=== PATIENT | female | born 1990 | race Caucasian/White ===

== ENCOUNTER 2020-03-09 19:07 | Emergency (ER) | payer MEDICAID ==
--- NOTE | 2020-03-09 19:55 | EDM.PDOC ---
ED HPI GENERAL MEDICAL PROBLEM - General Chief Complaint: Lower Extremity Injury/Pain Stated Complaint: POSSIBLE BLOOD CLOT IN RIGHT LEG Time Seen by Provider: 03/09/20 19:16 Source of Information: Reports: Patient History Limitations: Reports: No Limitations - History of Present Illness INITIAL COMMENTS - FREE TEXT/NARRATIVE: Patient is a 30 year old female who presents to the emergency department after being sent here from the [facility] with concerns of a possible blood clot in her RLE. Patient states that she has been having pain and intermittent swelling to the RLE for the last 5 days. She c/o pain to the popliteal fossa which intermittently radiates down her calf. She states that about 5 days ago she was sitting on the floor and straightened her knee. She felt a pop and has been having pain to the lateral aspect of the knee since that time. She has been seen at the [facility] and a chiropractor how stated that she likely damaged one the ligaments; however, the knee is stable. There is concern of blood clot d/t her having shooting pains down the calf. She denies a hx of blood clots and is on on oral control. She denies the need for pain medications at this time. Treatments SOFTWARE SOLUTIONS ARCHITECT: Reports: Other (see below) Other Treatments SOFTWARE SOLUTIONS ARCHITECT: ELEVATION Right Posterior Knee Pain Score (Numeric/FACES): 8 - Related Data Allergies Allergy/AdvReac Type Severity Reaction Status Date / Time No Known Allergies Allergy Verified 03/09/20 19:25 Home Meds: Home Meds . [No Known Home Meds] 03/09/20 [History] Past Medical History Respiratory History: Reports: Bronchitis, Recurrent Social & Family History - Tobacco Use Smoking Status *Q: Never Smoker - Caffeine Use Caffeine Use: Reports: Tea - Recreational Drug Use Recreational Drug Use: No Review of Systems - Review of Systems Review Of Systems: See Below Constitutional: Reports: No Symptoms Respiratory: Reports: No Symptoms. Denies: Shortness of Breath, Pleuritic Chest Pain Cardiovascular: Reports: No Symptoms. Denies: Chest Pain Musculoskeletal: Reports: Other (Rt knee pain radiating down the calf.) ED EXAM, GENERAL - Physical Exam Exam: See Below Exam Limited By: No Limitations General Appearance: Alert, WD/WN, No Apparent Distress Respiratory/Chest: No Respiratory Distress, Lungs Clear, Normal Breath Sounds, No Accessory Muscle Use, Chest Non-Tender Cardiovascular: Normal Peripheral Pulses, Regular Rate, Rhythm, No Edema, No Gallop, No JVD, No Murmur, No Rub Extremities: Other (tenderness to palpation of the right popliteal fossa and rt calf. No redness or swelling present at time of exam.) Neurological: Alert, Oriented, CN II-XII Intact, Normal Cognition, Normal Gait, Normal Reflexes, No Motor/Sensory Deficits Psychiatric: Normal Affect, Normal Mood Course - Vital Signs Last Recorded V/S: Last Vital Signs Temp 98.2 F 03/09/20 19:27 Pulse 102 H 03/09/20 19:27 Resp 20 03/09/20 19:27 BP 116/86 03/09/20 19:27 Pulse Ox 96 03/09/20 19:27 - Orders/Labs/Meds Orders: Active Orders 24 hr Category Date Time Status VL Duplex Lwr Ext Veins Ltd Rt [US] Stat Exams 03/09/20 19:27 Taken - Re-Assessments/Exams Free Text/Narrative Re-Assessment/Exam: 03/09/20 21:18 venous duplex u/s of the RLE was negative for DVT. Leon wrap was offered, but pt declined.. She presented with crutches. I will refer the patient to Dr. Anthony for her knee pain. Departure - Departure Time of Disposition: 21:19 Disposition: Home, Self-Care 01 Condition: Good Clinical Impression: Knee pain, right Qualifiers: Chronicity: acute Qualified Code(s): M25.561 - Pain in right knee - Discharge Information Instructions: Acute Knee Pain, Adult Referrals: Prince Anthony MD [Physician] - Forms: ED Department Discharge Additional Instructions: You were seen in the emergency department for a 5 day history of right knee pain with radiation of pain down your calf. An u/s was completed of the right leg and showed no blood clot. You may continue to use crutches and compression bandages as needed for comfort and use over the counter tylenol and ibuprofen as needed for pain. Recommend that you call to schedule an appointment with orthopedist, Dr. Anthony. The number to schedule with him is listed below. Return to the ER as needed. Sepsis Event Note (ED) - Evaluation Sepsis Screening Result: No Definite Risk - Focused Exam Vital Signs: Vital Signs Temp Pulse Resp BP Pulse Ox 08/31/20 19:27 98.2 F 102 H 20 116/86 96 - My Orders Last 24 Hours: My Active Orders 03/09/20 19:27 VL Duplex Lwr Ext Veins Ltd Rt [US] Stat - Assessment/Plan Last 24 Hours: My Active Orders 03/09/20 19:27 VL Duplex Lwr Ext Veins Ltd Rt [US] Stat
--- NOTE | 2020-03-11 08:46 | US ---
Right lower extremity deep venous ultrasound: Duplex and color Doppler evaluation was obtained of the right common femoral, proximal greater saphenous, superficial femoral, popliteal, posterior tibial and peroneal veins. Left common femoral vein was also evaluated. Comparison: No prior venous imaging is available. Findings: Normal phasic flow, augmentation and compression is seen. Impression: 1. No evidence of deep venous thrombosis within the right lower extremity or within the left common femoral vein. Diagnostic code #1 This report was dictated in MDT I agree with preliminary report from fahad, finalized on 03/09/20, 10 0 9 PM Central Daylight Time
== END 2020-03-09 21:32 | disposition home or self-care (01) ==
LOC: JD.ED 19:07
DX: M25.561 Pain in right knee (principal)
CPT/HCPCS: 93971-26-RT; 93971-RT; 99282; 99283-25

== ENCOUNTER 2020-12-01 16:10 | Observation (INO) | payer MEDICAID ==
[2020-12-01] MEDS ORDERED: LORazepam 2 MG/ML SDV IVPUSH ONE ×2 (16:25→16:26)
[2020-12-01 16:57] LABS: ACETAMINOPHEN 54 ug/mL (10-30)
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
[2020-12-01] MEDS ORDERED: Potassium Chloride 20 MEQ Tab.ER PO ONE (18:45)
[2020-12-01] MEDS ORDERED: Lactated Ringers 1,000 ML IV ONE (18:55)
[2020-12-01] MEDS ORDERED: Acetylcysteine 20% 200 MG/ML 30 ML Nebulizer Soln SDV ONE (19:08)
[2020-12-01] MEDS ORDERED: Magnesium Oxide 400 MG Tab PO ONE (19:25)
[2020-12-01] MEDS ORDERED: WATER IV ONE ×6 (19:45→20:45)
[2020-12-01] MEDS ORDERED: DEXTROSE 5% IV ONE ×6 (19:45→20:45)
[2020-12-01] MEDS ORDERED: ACETYLCYSTEINE IV ONE ×6 (19:45→20:45)
[2020-12-01] MEDS ORDERED: Sodium Chloride 0.9% 1,000 ML IV SCH (20:15)
[2020-12-02] MEDS ORDERED: WATER IV ONE ×4 (00:45→01:45)
[2020-12-02] MEDS ORDERED: DEXTROSE 5% IV ONE ×4 (00:45→01:45)
[2020-12-02] MEDS ORDERED: ACETYLCYSTEINE IV ONE ×4 (00:45→01:45)
[2020-12-02] MEDS ORDERED: Haloperidol Lactate 5 MG/ML SDV IM STA (05:06)
[2020-12-02] MEDS ORDERED: Haloperidol Lactate 5 MG/ML SDV ONE (05:09)
--- NOTE | 2020-12-02 07:50 | PCM.HP.2 ---
H&P History of Present Illness - General Date of Service: 12/02/20 Admit Problem/Dx: Admission Diagnosis/Problem Admission Diagnosis/Problem Acetaminophen overdose Source of Information: Patient History Limitations: Reports: No Limitations - History of Present Illness Initial Comments - Free Text/Narative: The patient is a 30-year-old lady who was admitted yesterday evening due to a brief psychotic episode as well as a suspected Tylenol overdose. Reportedly there was some kind of ritual performed and the patient was involved in it and apparently had hit her head on a hard surface. The patient had been recommended to have a CT scan but initially refused this. The patient initially also refused COVID-19 screening. According to ER reports the patient was screaming out and jumping around in bed. Today the patient appears to be coherent she is alert and oriented but her history is somewhat suspect and not reliable at this point. She has denied any pain. The patient also says that she has not taken any Tylenol. The patient has not been taking any medications and she has no past psychiatric history. She has denied any nausea or vomiting. Onset of Symptoms: Reports: Sudden Duration of Symptoms: Reports: Day(s): Location: Reports: Generalized Severity: Mild Improves with: Reports: Medication Worsens with: Reports: None Associated Symptoms: Reports: Confusion - Related Data Allergies/Adverse Reactions: Allergies Allergy/AdvReac Type Severity Reaction Status Date / Time mold Allergy Chest Verified 12/02/20 04:16 Tightness Home Medications: Home Meds Fish Oil/DHA/EPA [Fish Oil 1,200 MG] 1 cap PO DAILY PRN 12/02/20 [History] Non-Formulary Medication [NF Drug] 1 cap PO Q48H 12/02/20 [History] Non-Formulary Medication [NF Drug] 1 tab PO BID 12/02/20 [History] Non-Formulary Medication [NF Drug] 1 tab PO BID 12/02/20 [History] Non-Formulary Medication [NF Drug] 1 tab PO Q48H 12/02/20 [History] Non-Formulary Medication [NF Drug] 5 drp PO ASDIRECTED PRN 12/02/20 [History] Non-Formulary Medication [NF Drug] 5 drp PO ASDIRECTED PRN 12/02/20 [History] Past Medical History - Past Health History Medical/Surgical History: Denies Medical/Surgical History HEENT History: Reports: None Cardiovascular History: Reports: None Respiratory History: Reports: Bronchitis, Recurrent Gastrointestinal History: Reports: None Genitourinary History: Reports: None Musculoskeletal History: Reports: None Neurological History: Reports: None Psychiatric History: Reports: Anxiety, Psychosis Endocrine/Metabolic History: Reports: None Hematologic History: Reports: None - Infectious Disease History Infectious Disease History: Reports: Chicken Pox - Past Surgical History HEENT Surgical History: Reports: Other (See Below) Other HEENT Surgeries/Procedures: [place] teeth removed Respiratory Surgical History: Reports: None Social & Family History - Family History Family Medical History: No Pertinent Family History - Tobacco Use Tobacco Use Status *Q: Never Tobacco User Second Hand Smoke Exposure: Yes - Caffeine Use Caffeine Use: Reports: Tea Other Caffeine Use: Uses herbal teas of a variety on a regular basis - Alcohol Use Date of Last Drink: 01/11/20 - Recreational Drug Use Recreational Drug Use: No - Living Situation & Occupation Living situation: Reports: Occupation: Other H&P Review of Systems - Review of Systems: Review Of Systems: See Below General: Reports: Weakness, Fatigue HEENT: Reports: No Symptoms Pulmonary: Reports: No Symptoms Cardiovascular: Reports: No Symptoms Gastrointestinal: Reports: No Symptoms Genitourinary: Reports: No Symptoms Musculoskeletal: Reports: No Symptoms Skin: Reports: No Symptoms Psychiatric: Reports: No Symptoms Neurological: Reports: No Symptoms Hematologic/Lymphatic: Reports: No Symptoms Immunologic: Reports: No Symptoms Exam - Exam Exam: See Below - Vital Signs Vital Signs: Last Vital Signs Temp 36.6 C 12/02/20 04:53 Pulse 118 H 12/02/20 04:53 Resp 20 12/02/20 04:53 BP 120/87 12/02/20 04:53 Pulse Ox 98 12/02/20 04:53 Weight: 45.813 kg - Exam Quality Assessment: DVT Prophylaxis. No: Supplemental Oxygen General: Alert, Oriented, Cooperative HEENT: Conjunctiva Clear, EACs Clear, EOMI, Mucosa Moist & Jones, PERRLA Neck: Supple, Trachea Midline Lungs: Clear to Auscultation, Normal Respiratory Effort Cardiovascular: Regular Rate, Regular Rhythm GI/Abdominal Exam: Normal Bowel Sounds, Soft, Non-Tender, No Distention (Female) Exam: Deferred Rectal (Female) Exam: Deferred Back Exam: Normal Inspection, Full Range of Motion Extremities: Normal Inspection, Normal Range of Motion, No Pedal Edema Skin: Warm, Dry, Intact Neurological: Cranial Nerves Intact Psychiatric: Alert, Normal Affect, Normal Mood, Labile Mood - Patient Data Lab Results Last 24 hrs: Laboratory Results - last 24 hr 12/01/20 12/01/20 12/01/20 Range/Units 16:20 16:20 16:20 WBC 9.95 (3.98-10.04) K/mm3 RBC 4.64 (3.98-5.22) M/mm3 Hgb 13.7 (11.2-15.7) gm/dl Hct 41.1 (34.1-44.9) % MCV 88.6 (79.4-94.8) fl MCH 29.5 (25.6-32.2) pg MCHC 33.3 (32.2-35.5) g/dl RDW Std Deviation 39.8 (36.4-46.3) fL Plt Count 247 (182-369) K/mm3 MPV 10.3 (9.4-12.3) fl Neut % (Auto) 71.8 H (34.0-71.1) % Lymph % (Auto) 21.9 (19.3-51.7) % [place] % (Auto) 5.8 (4.7-12.5) % Eos % (Auto) 0.1 L (0.7-5.8) Baso % (Auto) 0.2 (0.1-1.2) % Neut # (Auto) 7.14 H (1.56-6.13) K/mm3 Lymph # (Auto) 2.18 (1.18-3.74) K/mm3 [place] # (Auto) 0.58 H (0.24-0.36) K/mm3 Eos # (Auto) 0.01 L (0.04-0.36) K/mm3 Baso # (Auto) 0.02 (0.01-0.08) K/mm3 Sodium 141 (136-145) mEq/L Potassium 3.0 L (3.5-5.1) mEq/L Chloride 103 (98-107) mEq/L Carbon Dioxide 21 (21-32) mEq/L Anion Gap 20.0 H (5-15) BUN 8 (7-18) mg/dL Creatinine 1.0 (0.55-1.02) mg/dL Est Cr Clr Drug Dosing TNP Estimated GFR (MDRD) > 60 (>60) mL/min BUN/Creatinine Ratio 8.0 L (14-18) Glucose 133 H (70-99) mg/dL Calcium 8.8 (8.5-10.1) mg/dL Magnesium (1.8-2.4) mg/dL Total Bilirubin 0.7 (0.2-1.0) mg/dL AST 14 L (15-37) U/L ALT 19 (14-59) U/L Alkaline Phosphatase 48 (46-116) U/L Total Protein 7.1 (6.4-8.2) g/dl Albumin 4.2 (3.4-5.0) g/dl Globulin 2.9 gm/dL Albumin/Globulin Ratio 1.5 (1-2) TSH 3rd Generation 0.674 (0.358-3.74) uIU/mL HCG, Qual Negative (NEGATIVE) Urine Color (Yellow) Urine Appearance (Clear) Urine pH (5.0-8.0) Ur Specific [place] (1.005-1.030) Urine Protein (Negative) Urine Glucose (UA) (Negative) Urine Ketones (Negative) Urine Occult Blood (Negative) Urine Nitrite (Negative) Urine Bilirubin (Negative) Urine Urobilinogen (0.2-1.0) Ur Leukocyte Esterase (Negative) U Hyaline Cast (Auto) (0-5) /lpf Urine RBC (0-5) /hpf Urine WBC (0-5) /hpf Ur Squamous Epith Cells (0-5) /hpf Urine Bacteria (FEW) /hpf Urine Mucus (FEW) /hpf Salicylates (2.8-20) mg/dL Urine Opiates Screen (OHFQDJ=850) Ur Buprenorphine Scrn (CUTOFF=10) Ur Oxycodone Screen (YCI4BS=173) Urine Methadone Screen (ICBYFX=355) Ur Propoxyphene Screen (FHOYZP=461) Acetaminophen 54 H (10-30) ug/mL Ur Barbiturates Screen (YUCEZT=541) Ur Tricyclics Screen (NALEXM=390) Ur Phencyclidine Scrn (CUTOFF=25) Ur Amphetamine Screen (HTQGCC=709) U Methamphetamines Scrn (NGBJKF=129) U Benzodiazepines Scrn (OEPHZS=007) U Cocaine Metab Screen (ZQEJTZ=449) U Marijuana (THC) Screen (CUTOFF=50) Ethyl Alcohol 0.00 (0.00) gm% SARS-CoV-2 RNA (NITHIN) (NEGATIVE) 12/01/20 12/01/20 12/01/20 Range/Units 16:20 16:32 16:32 WBC (3.98-10.04) K/mm3 RBC (3.98-5.22) M/mm3 Hgb (11.2-15.7) gm/dl Hct (34.1-44.9) % MCV (79.4-94.8) fl MCH (25.6-32.2) pg MCHC (32.2-35.5) g/dl RDW Std Deviation (36.4-46.3) fL Plt Count (182-369) K/mm3 MPV (9.4-12.3) fl Neut % (Auto) (34.0-71.1) % Lymph % (Auto) (19.3-51.7) % [place] % (Auto) (4.7-12.5) % Eos % (Auto) (0.7-5.8) Baso % (Auto) (0.1-1.2) % Neut # (Auto) (1.56-6.13) K/mm3 Lymph # (Auto) (1.18-3.74) K/mm3 [place] # (Auto) (0.24-0.36) K/mm3 Eos # (Auto) (0.04-0.36) K/mm3 Baso # (Auto) (0.01-0.08) K/mm3 Sodium (136-145) mEq/L Potassium (3.5-5.1) mEq/L Chloride (98-107) mEq/L Carbon Dioxide (21-32) mEq/L Anion Gap (5-15) BUN (7-18) mg/dL Creatinine (0.55-1.02) mg/dL Est Cr Clr Drug Dosing Estimated GFR (MDRD) (>60) mL/min BUN/Creatinine Ratio (14-18) Glucose (70-99) mg/dL Calcium (8.5-10.1) mg/dL Magnesium (1.8-2.4) mg/dL Total Bilirubin (0.2-1.0) mg/dL AST (15-37) U/L ALT (14-59) U/L Alkaline Phosphatase (46-116) U/L Total Protein (6.4-8.2) g/dl Albumin (3.4-5.0) g/dl Globulin gm/dL Albumin/Globulin Ratio (1-2) TSH 3rd Generation (0.358-3.74) uIU/mL HCG, Qual (NEGATIVE) Urine Color Yellow (Yellow) Urine Appearance Clear (Clear) Urine pH 6.0 (5.0-8.0) Ur Specific [place] 1.025 (1.005-1.030) Urine Protein 1+ H (Negative) Urine Glucose (UA) Negative (Negative) Urine Ketones 3+ H (Negative) Urine Occult Blood Negative (Negative) Urine Nitrite Negative (Negative) Urine Bilirubin Negative (Negative) Urine Urobilinogen 0.2 (0.2-1.0) Ur Leukocyte Esterase Negative (Negative) U Hyaline Cast (Auto) 20-30 H (0-5) /lpf Urine RBC Not seen (0-5) /hpf Urine WBC 0-5 (0-5) /hpf Ur Squamous Epith Cells Not seen (0-5) /hpf Urine Bacteria Few (FEW) /hpf Urine Mucus Moderate H (FEW) /hpf Salicylates < 0.2 L (2.8-20) mg/dL Urine Opiates Screen Negative (UAXOBM=887) Ur Buprenorphine Scrn Negative (CUTOFF=10) Ur Oxycodone Screen Negative (ZFB2DI=174) Urine Methadone Screen Negative (OBJWKF=081) Ur Propoxyphene Screen Negative (SDYJPG=051) Acetaminophen (10-30) ug/mL Ur Barbiturates Screen Negative (DKSZVG=212) Ur Tricyclics Screen Negative (YADRQG=371) Ur Phencyclidine Scrn Negative (CUTOFF=25) Ur Amphetamine Screen Negative (MEAUAR=023) U Methamphetamines Scrn Negative (JUTXWZ=932) U Benzodiazepines Scrn Negative (SNDGXQ=267) U Cocaine Metab Screen Negative (ZBOOQE=200) U Marijuana (THC) Screen Negative (CUTOFF=50) Ethyl Alcohol (0.00) gm% SARS-CoV-2 RNA (NITHIN) (NEGATIVE) 12/01/20 12/01/20 12/02/20 Range/Units 19:26 20:41 05:50 WBC (3.98-10.04) K/mm3 RBC (3.98-5.22) M/mm3 Hgb (11.2-15.7) gm/dl Hct (34.1-44.9) % MCV (79.4-94.8) fl MCH (25.6-32.2) pg MCHC (32.2-35.5) g/dl RDW Std Deviation (36.4-46.3) fL Plt Count (182-369) K/mm3 MPV (9.4-12.3) fl Neut % (Auto) (34.0-71.1) % Lymph % (Auto) (19.3-51.7) % [place] % (Auto) (4.7-12.5) % Eos % (Auto) (0.7-5.8) Baso % (Auto) (0.1-1.2) % Neut # (Auto) (1.56-6.13) K/mm3 Lymph # (Auto) (1.18-3.74) K/mm3 [place] # (Auto) (0.24-0.36) K/mm3 Eos # (Auto) (0.04-0.36) K/mm3 Baso # (Auto) (0.01-0.08) K/mm3 Sodium 142 (136-145) mEq/L Potassium 3.1 L (3.5-5.1) mEq/L Chloride 107 (98-107) mEq/L Carbon Dioxide 23 (21-32) mEq/L Anion Gap 15.1 H (5-15) BUN 4 L (7-18) mg/dL Creatinine 0.5 L (0.55-1.02) mg/dL Est Cr Clr Drug Dosing 118.99 Estimated GFR (MDRD) > 60 (>60) mL/min BUN/Creatinine Ratio 8.0 L (14-18) Glucose 119 H (70-99) mg/dL Calcium 7.9 L (8.5-10.1) mg/dL Magnesium 1.9 (1.8-2.4) mg/dL Total Bilirubin 0.6 (0.2-1.0) mg/dL AST 11 L (15-37) U/L ALT 18 (14-59) U/L Alkaline Phosphatase 35 L (46-116) U/L Total Protein 5.9 L (6.4-8.2) g/dl Albumin 3.2 L (3.4-5.0) g/dl Globulin 2.7 gm/dL Albumin/Globulin Ratio 1.2 (1-2) TSH 3rd Generation (0.358-3.74) uIU/mL HCG, Qual (NEGATIVE) Urine Color (Yellow) Urine Appearance (Clear) Urine pH (5.0-8.0) Ur Specific [place] (1.005-1.030) Urine Protein (Negative) Urine Glucose (UA) (Negative) Urine Ketones (Negative) Urine Occult Blood (Negative) Urine Nitrite (Negative) Urine Bilirubin (Negative) Urine Urobilinogen (0.2-1.0) Ur Leukocyte Esterase (Negative) U Hyaline Cast (Auto) (0-5) /lpf Urine RBC (0-5) /hpf Urine WBC (0-5) /hpf Ur Squamous Epith Cells (0-5) /hpf Urine Bacteria (FEW) /hpf Urine Mucus (FEW) /hpf Salicylates (2.8-20) mg/dL Urine Opiates Screen (ZREGRZ=639) Ur Buprenorphine Scrn (CUTOFF=10) Ur Oxycodone Screen (SKS5UR=514) Urine Methadone Screen (FMBIRQ=722) Ur Propoxyphene Screen (KVXXSJ=812) Acetaminophen (10-30) ug/mL Ur Barbiturates Screen (GUTBCB=486) Ur Tricyclics Screen (GBETXS=335) Ur Phencyclidine Scrn (CUTOFF=25) Ur Amphetamine Screen (XWEXDM=583) U Methamphetamines Scrn (CEHUAP=415) U Benzodiazepines Scrn (YVASMR=084) U Cocaine Metab Screen (WHRTKJ=246) U Marijuana (THC) Screen (CUTOFF=50) Ethyl Alcohol (0.00) gm% SARS-CoV-2 RNA (NITHIN) Negative (NEGATIVE) 12/02/20 Range/Units 05:50 WBC (3.98-10.04) K/mm3 RBC (3.98-5.22) M/mm3 Hgb (11.2-15.7) gm/dl Hct (34.1-44.9) % MCV (79.4-94.8) fl MCH (25.6-32.2) pg MCHC (32.2-35.5) g/dl RDW Std Deviation (36.4-46.3) fL Plt Count (182-369) K/mm3 MPV (9.4-12.3) fl Neut % (Auto) (34.0-71.1) % Lymph % (Auto) (19.3-51.7) % [place] % (Auto) (4.7-12.5) % Eos % (Auto) (0.7-5.8) Baso % (Auto) (0.1-1.2) % Neut # (Auto) (1.56-6.13) K/mm3 Lymph # (Auto) (1.18-3.74) K/mm3 [place] # (Auto) (0.24-0.36) K/mm3 Eos # (Auto) (0.04-0.36) K/mm3 Baso # (Auto) (0.01-0.08) K/mm3 Sodium (136-145) mEq/L Potassium (3.5-5.1) mEq/L Chloride (98-107) mEq/L Carbon Dioxide (21-32) mEq/L Anion Gap (5-15) BUN (7-18) mg/dL Creatinine (0.55-1.02) mg/dL Est Cr Clr Drug Dosing Estimated GFR (MDRD) (>60) mL/min BUN/Creatinine Ratio (14-18) Glucose (70-99) mg/dL Calcium (8.5-10.1) mg/dL Magnesium (1.8-2.4) mg/dL Total Bilirubin (0.2-1.0) mg/dL AST (15-37) U/L ALT (14-59) U/L Alkaline Phosphatase (46-116) U/L Total Protein (6.4-8.2) g/dl Albumin (3.4-5.0) g/dl Globulin gm/dL Albumin/Globulin Ratio (1-2) TSH 3rd Generation (0.358-3.74) uIU/mL HCG, Qual (NEGATIVE) Urine Color (Yellow) Urine Appearance (Clear) Urine pH (5.0-8.0) Ur Specific [place] (1.005-1.030) Urine Protein (Negative) Urine Glucose (UA) (Negative) Urine Ketones (Negative) Urine Occult Blood (Negative) Urine Nitrite (Negative) Urine Bilirubin (Negative) Urine Urobilinogen (0.2-1.0) Ur Leukocyte Esterase (Negative) U Hyaline Cast (Auto) (0-5) /lpf Urine RBC (0-5) /hpf Urine WBC (0-5) /hpf Ur Squamous Epith Cells (0-5) /hpf Urine Bacteria (FEW) /hpf Urine Mucus (FEW) /hpf Salicylates (2.8-20) mg/dL Urine Opiates Screen (YCESSF=861) Ur Buprenorphine Scrn (CUTOFF=10) Ur Oxycodone Screen (VPC0QU=545) Urine Methadone Screen (URJMHN=789) Ur Propoxyphene Screen (VTIXAP=922) Acetaminophen 0 L (10-30) ug/mL Ur Barbiturates Screen (SYJWWV=399) Ur Tricyclics Screen (QUBEVE=271) Ur Phencyclidine Scrn (CUTOFF=25) Ur Amphetamine Screen (VFEHUD=501) U Methamphetamines Scrn (ZVZWHQ=706) U Benzodiazepines Scrn (EFNFRD=219) U Cocaine Metab Screen (UKJJYI=996) U Marijuana (THC) Screen (CUTOFF=50) Ethyl Alcohol (0.00) gm% SARS-CoV-2 RNA (NITHIN) (NEGATIVE) Result Diagrams: 12/01/20 16:20 12/02/20 05:50 Sepsis Event Note - Evaluation Sepsis Screening Result: No Definite Risk - Focused Exam Vital Signs: Vital Signs Temp Pulse Resp BP Pulse Ox 12/02/20 04:53 36.6 C 118 H 20 120/87 98 12/01/20 21:52 36.9 C 94 20 113/74 100 - Problem List (1) Brief psychotic disorder SNOMED Code(s): 0592944 ICD Code: F23 - BRIEF PSYCHOTIC DISORDER Status: Acute Priority: High Current Visit: Yes (2) Tylenol overdose SNOMED Code(s): 294781327 ICD Code: T39.1X1A - POISONING BY 4-AMINOPHENOL DERIVATIVES, ACCIDENTAL, INIT Status: Acute Priority: High Current Visit: Yes Qualifiers: Encounter type: subsequent encounter Problem List Initiated/Reviewed/Updated: Yes Orders Last 24hrs: Active Orders 24 hr Category Date Time Status Patient Status [ADT] Routine ADT 12/01/20 20:37 Active Initiate/Renew Non-Violent Restraints (All Ages) Q24H Care 12/02/20 05:30 Ordered Nrsg Assess Restraint Init/Mon [RC] Q1HR Care 12/02/20 05:27 Active Regular Diet [DIET] Diet 12/02/20 Breakfast Active Head wo Cont [CT] Routine Exams 12/01/20 23:25 Taken Acetylcysteine [Acetadote 20%] 4,080 mg Med 12/02/20 00:45 Active Dextrose 5% in Water 1,000 ml IV ONETIME Code Status [Resuscitation Status] Routine Resus Stat 12/01/20 22:06 Ordered Medication Orders Acetylcysteine 4,080 mg/ (Dextrose/Water) 1,020.4 mls @ 63.775 mls/hr IV ONETIME ONE Stop: 12/02/20 16:44 Last Admin: 12/02/20 01:33 Dose: 63.775 mls/hr Documented by: RUBIN Assessment/Plan Comment:: The patient is an otherwise healthy 30-year-old lady who had been admitted secondary to Tylenol overdose. N-acetylcysteine will continue until appropriate doses have been administered. I have discussed the case with the pharmacist. The patient did have an episode where she was thrashing about and had been given 5 mg of Haldol at about 5 AM. This will be as a as needed medication. The patient will have regular diet as tolerated. She has been encouraged to amb ulate. The patient will also be placed on DVT prophylaxis with the use of Lovenox [address] Warren, psychiatrist, will be consulted. The patient's liver enzymes will be monitored for signs and symptoms of hepatic failure. Tylenol level ordered for this morning was a 0. Repeat laboratory studies have been ordered. - Mortality Measure Prognosis:: Good
--- NOTE | 2020-12-02 08:08 | CT ---
Head CT Technique: Multiple axial sections through the brain were obtained. Intravenous contrast was not utilized. Reconstructed coronal and sagittal images were obtained. Comparison: No prior intracranial imaging is available. Findings: Ventricles along with basal cisterns and sulci over the convexities are within normal limits for the patient's age. No abnormal parenchymal densities are seen. No evidence of intracranial hemorrhage is seen. No midline shift or mass-effect is seen. Two small scalp abnormalities are seen within the upper parietal scalp which are most likely due to benign lesions. Bone window settings were reviewed which show the visualized paranasal sinuses and mastoid sinuses to appear clear. No acute calvarial abnormality is appreciated. Impression: 1. Two small scalp lesions which are believed to represent benign abnormalities. 2. No acute intracranial abnormality is appreciated. Diagnostic code #2 I mostly agree with preliminary report from [facility] finalized on 12/02/20, 1:56 AM CDT, code 2
[2020-12-02] MEDS: Enoxaparin 30 MG/0.3 ML Syringe SUBCUT SCH (12:28)
[2020-12-02] MEDS ORDERED: Potassium Chloride 10 MEQ Tab.ER PO ONE (16:15)
[2020-12-02] MEDS ORDERED: Haloperidol 5 MG Tab PO SCH (21:00)
--- NOTE | 2020-12-02 22:03 | CONS ---
CONSULTING PHYSICIAN: Hira Warren MD DATE OF CONSULTATION: 12/02/2020 This is a 60-minute inpatient clinical event. Site where the services are provided are [facility] in [place], [place]. Site where the services are provided from our offices in [facility]. Length of service for this 60-minute inpatient telemedicine event is 60 minutes. IDENTIFICATION: The patient is a 30-year-old female who is admitted to the inpatient Med/Surg Unit at [facility] in [place], [place] on 12/01/2020. She is seen for psychiatric consultation per the request of staff attending, Dr. Up and his treatment team. It should also be noted that the patient's mother, Denisse was present at the interview and also participated in the interview. CHIEF COMPLAINT: "Basically, I was having fits and I was having a certain level of auditory and visual hallucinations. It was very frightening." HISTORY OF PRESENT ILLNESS: The patient is a 30-year-old female who reports that she was experiencing non- command type auditory hallucinations and visual hallucinations, and they were so disturbing she started to bang her head into a wall to try and get rid of these episodes. Evidently these episodes of psychotic symptoms began occurring little over a month ago and they just "built up" according to the patient. The patient has also been having poor sleep patterns as a result. Apparently, she did have high Tylenol levels on admission, but the patient and the patient's mother are quite perplexed because they are stating that the patient "has not taken any Tylenol since last fall." She was dealing with some pain issues and even then according to the patient's mother, "she did not like the Tylenol at all." The patient denies any illicit substance use or excessive alcohol use or cannabis use complicating her clinical picture. She denies that she is suicidal or homicidal. She does state that over the past number of months, she had gotten more involved in a cult-like activity and had been learning about satanic rituals because she had started dating a young man whose ex-girlfriend or ex- was apparently involved in witchcraft and was involved in [employer], and so patient was trying to learn about these activities in order to protect herself from this woman in question who was apparently quite irate that the patient had started dating her ex. She states it was around this time that all the trouble started and she does state that since she was given Haldol on the unit, she has been thinking clearly and sleeping better, and while the patient does not want to take medications at all and the mother agrees with this, they are thinking that it might be good for the short term to help clear her mind. MEDICATIONS: At time of presentation that are prescription none, although patient does take quite a few supplements including Zinc Balance, probiotics, grapefruit seed extract, fish oil, Vegan D3, plant enzyme protease and according to staff. ALLERGIES: The patient is allergic to mold. PAST MEDICAL HISTORY: Patient has a history of sciatica for which she took acetaminophen last fall to help control the pain. REVIEW OF SYSTEMS: Aside from musculoskeletal issues, all other major organ systems are negative at this point in time for acute difficulties or complications. FAMILY PSYCHIATRIC AND CD HISTORY: Patient reports she has maternal uncle who has history of schizophrenia. PAST PSYCHIATRIC AND CD HISTORY: Essentially negative. Patient is denying any previous psychiatric hospitalizations or chemical dependency treatments. She has no prior suicide attempts or history of self-injurious behaviors. No eating disorder history and also no abuse issues while being raised. She denies any past psychiatric medication history aside from the Haldol which was given to her IM on the unit because she was displaying psychotic symptoms. SOCIAL HISTORY: The patient is born in [place], [place], raised in [facility]. She is the only child. Her biological parents when she was around 11 years of age. She stayed with her mom after that. Mother was a computer operator. Father was a cyber software engineer. The patient's highest level of education is a high school diploma. 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 She has been in a current relationship with the boyfriend who was described in the history for a few months. Boyfriend works in maintenance. She denies any pregnancies. She lives in [place], [place] with her mom. Denies any prior service or any current legal difficulties. She does believe in god and is interested in getting more involved in Alevism side of things going forward given her experience. 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 MENTAL STATUS EXAM: The patient is a 30-year-old white female, in no apparent distress. Speech is of regular rate and rhythm. The patient is cognitively oriented x3. Psychomotor activity is within normal limits. There are no abnormal motor movements or tics observed. Gait and station are not observed. This patient is sitting on the bed during the course of the interview. There is no behavioral or stated evidence of acute suicidal or homicidal ideation or acute psychotic, delusional, or paranoid symptoms at the time of the interview. Thought processes are organized and there are no acute manic symptoms or loose associations evident. Judgment and insight appear unimpaired at this point in time. Motivation for help is good. VITALS: 118/90, 108, 18, 99 degrees. IMPRESSION: [place] I: 1. Psychosis, not otherwise specified, F29. 2. Anxiety disorder, not otherwise specified, F41.9. [place] II: None. [place] III: Past history of sciatica. [place] IV: Moderate to severe. [place] V: 60. PLAN: 1. Continue Haldol while on the unit 5 mg p.o. at bedtime to help with clarity of thought, elimination of any psychotic or paranoid symptoms. 2. Recommend that when the patient is medically stabilized and able to be discharged back to community that they continue the Haldol 2 mg p.o. at bedtime on an outpatient basis to also help with clarity of thought. 3. Recommend the patient follow up with outpatient psychiatry to assess overall function and efficacy of her newly initiated psychiatric medication regimen. 4. The patient and the patient's mother apprised of benefits and side effects of the patient's newly initiated psychiatric medication regimen. They both acknowledged their understanding to these facts and had no further questions by the end of the interview session. 5. Other medications as dosed and prescribed by the patient's primary inpatient medical treatment team. 6. Medication compliance. 7. The patient is instructed to maintain good hydration status. 8. Pastoral guidance. 9. We will continue to follow up with the patient on an as-needed basis while she remains on the inpatient Med/Surg Unit. 10.We will follow up with the patient sooner if any complications in the interim. 11.From a psychiatric standpoint, it appears the patient is psychiatrically stable and not a danger to herself or others at this point in time and she is able to be discharged back to community when medically stabilized. 12.Crisis plan is in place. ELIAS /[id number]
--- NOTE | 2020-12-03 07:28 | PCM.DCSUM1 ---
Discharge Summary - Hospital Course HPI Initial Comments: The patient was admitted primarily for Tylenol overdose. The patient had denied taking Tylenol in several months. Diagnosis: Stroke: No - Discharge Data Discharge Date: 12/03/20 Discharge Disposition: Home, Self-Care 01 Condition: Good - Referral to Home Health Primary Care Physician: Casey Wang - Discharge Diagnosis/Problem(s) (1) Brief psychotic disorder SNOMED Code(s): 6845148 ICD Code: F23 - BRIEF PSYCHOTIC DISORDER Status: Resolved Priority: High (2) Tylenol overdose SNOMED Code(s): 748826112 ICD Code: T39.1X1A - POISONING BY 4-AMINOPHENOL DERIVATIVES, ACCIDENTAL, INIT Status: Resolved Priority: High Qualifiers: Encounter type: subsequent encounter - Patient Summary/Data Consults: Consultations 12/02/20 07:58 Consult to Physician [CONS] Urgent 12/02/20 15:55 Consult to Spiritual Care [CONS] Routine Hospital Course: The patient is a 30-year-old lady who was admitted to acute hospitalization on December 02, 2020 due to brief psychotic episode. Additionally, the patient had high levels of Tylenol in her bloodstream and she was also treated for Tylenol overdose. Interestingly, the patient says that she had not taken any Tylenol since last fall. Because of the uncertainty of ingestion or the amount of ingestion the patient was started on aggressive dose of N-acetylcysteine. The patient tolerated the treatment well. The patient's Tylenol levels were repeated and they were found to be 0. On the morning after admission the patient had started to develop apparent hallucinations and reportedly had referred to herself as Cathy and not by her name Dahiana. The patient had to be given 5 mg of Haldol for sedation. The patient had completed full dosages N- acetylcysteine and her liver enzymes had remained low to low normal. An EKG also obtained during her hospitalization was normal. She had been evaluated by Dr. Warren, psychiatrist, who had recommended while she was in the hospital to be on 5 mg of Haldol at bedtime. She has been discharged on Haldol 2 mg p.o. at bedtime. The patient had been ambulating independently. The patient and the patient's mother had consistently requested information about herbal treatment for various illnesses. I explained to the patient and the patient's mother the problems that can be associated with herbal treatment and traditional medicine. For the time the patient agreed to continue with Haldol. By day of discharge the patient was otherwise hemodynamically stable. She had been tolerating her diet. The patient has been recommended to follow-up with psychiatry. She has been recommended to continue with her diet. Activity as tolerated. She has been hemodynamically stable and she has been discharged from acute hospitalization with the recommendations listed above. - Patient Instructions Diet: Heart Healthy Diet Activity: As Tolerated - Discharge Plan *PRESCRIPTION DRUG MONITORING PROGRAM REVIEWED*: No *COPY OF PRESCRIPTION DRUG MONITORING REPORT IN PATIENT SARAH: No Prescriptions/Med Rec: haloperidoL [Haldol] 2 mg PO BEDTIME #30 tab Home Medications: Home Meds Fish Oil/DHA/EPA [Fish Oil 1,200 MG] 1 cap PO DAILY PRN 12/02/20 [History] Non-Formulary Medication [NF Drug] 1 cap PO Q48H 12/02/20 [History] Non-Formulary Medication [NF Drug] 1 tab PO BID 12/02/20 [History] Non-Formulary Medication [NF Drug] 1 tab PO BID 12/02/20 [History] Non-Formulary Medication [NF Drug] 1 tab PO Q48H 12/02/20 [History] Non-Formulary Medication [NF Drug] 5 drp PO ASDIRECTED PRN 12/02/20 [History] Non-Formulary Medication [NF Drug] 5 drp PO ASDIRECTED PRN 12/02/20 [History] haloperidoL [Haldol] 2 mg PO BEDTIME #30 tab 12/03/20 [Rx] Oxygen Therapy Mode: Room Air Patient Handouts: Acetaminophen Overdose Forms: ED Department Discharge Referrals: Barbara Garcia PT [Primary Care Provider] - (follow up with provider of your choosing in 7-10 days.) - Discharge Summary/Plan Comment DC Time >30 min.: Yes - General Info Date of Service: 12/03/20 Admission Dx/Problem (Free Text: Admission Diagnosis/Problem Admission Diagnosis/Problem Acetaminophen overdose Subjective Update: The patient has been doing well. She is awake alert and oriented. She has denied any pain. The patient feels like she can go home. Functional Status: Reports: Pain Controlled, Tolerating Diet - Review of Systems General: Reports: No Symptoms HEENT: Reports: No Symptoms Pulmonary: Reports: No Symptoms Cardiovascular: Reports: No Symptoms Gastrointestinal: Reports: No Symptoms Genitourinary: Reports: No Symptoms Musculoskeletal: Reports: No Symptoms Skin: Reports: No Symptoms Neurological: Reports: No Symptoms Psychiatric: Reports: No Symptoms - Patient Data Vitals - Most Recent: Last Vital Signs Temp 36.9 C 12/03/20 06:12 Pulse 82 12/03/20 06:12 Resp 12 12/03/20 06:12 BP 100/57 L 12/03/20 06:12 Pulse Ox 97 12/03/20 06:12 Weight - Most Recent: 45.904 kg I&O - Last 24 hours: Intake & Output 12/02/20 12/03/20 12/03/20 22:59 06:59 14:59 Intake Total 1688 495 Output Total 2000 300 Balance -312 195 Lab Results - Last 24 hrs: Laboratory Results - last 24 hr 12/02/20 12/02/20 12/02/20 Range/Units 05:50 05:50 16:01 WBC (3.98-10.04) K/mm3 RBC (3.98-5.22) M/mm3 Hgb (11.2-15.7) gm/dl Hct (34.1-44.9) % MCV (79.4-94.8) fl MCH (25.6-32.2) pg MCHC (32.2-35.5) g/dl RDW Std Deviation (36.4-46.3) fL Plt Count (182-369) K/mm3 MPV (9.4-12.3) fl Neut % (Auto) (34.0-71.1) % Lymph % (Auto) (19.3-51.7) % [place] % (Auto) (4.7-12.5) % Eos % (Auto) (0.7-5.8) Baso % (Auto) (0.1-1.2) % Neut # (Auto) (1.56-6.13) K/mm3 Lymph # (Auto) (1.18-3.74) K/mm3 [place] # (Auto) (0.24-0.36) K/mm3 Eos # (Auto) (0.04-0.36) K/mm3 Baso # (Auto) (0.01-0.08) K/mm3 PT 12.4 H (9.7-12.0) SECONDS INR 1.16 Sodium 142 (136-145) mEq/L Potassium 3.1 L (3.5-5.1) mEq/L Chloride 107 (98-107) mEq/L Carbon Dioxide 23 (21-32) mEq/L Anion Gap 15.1 H (5-15) BUN 4 L (7-18) mg/dL Creatinine 0.5 L (0.55-1.02) mg/dL Est Cr Clr Drug Dosing 118.99 mL/min Estimated GFR (MDRD) > 60 (>60) mL/min BUN/Creatinine Ratio 8.0 L (14-18) Glucose 119 H (70-99) mg/dL Calcium 7.9 L (8.5-10.1) mg/dL Total Bilirubin 0.6 (0.2-1.0) mg/dL Direct Bilirubin (0.0-0.2) mg/dl Indirect Bilirubin AST 11 L (15-37) U/L ALT 18 (14-59) U/L Alkaline Phosphatase 35 L (46-116) U/L Total Protein 5.9 L (6.4-8.2) g/dl Albumin 3.2 L (3.4-5.0) g/dl Globulin 2.7 gm/dL Albumin/Globulin Ratio 1.2 (1-2) Acetaminophen 0 L (10-30) ug/mL 12/02/20 12/03/20 12/03/20 Range/Units 16:01 05:14 05:14 WBC 5.09 (3.98-10.04) K/mm3 RBC 3.97 L (3.98-5.22) M/mm3 Hgb 11.6 D (11.2-15.7) gm/dl Hct 35.9 (34.1-44.9) % MCV 90.4 (79.4-94.8) fl MCH 29.2 (25.6-32.2) pg MCHC 32.3 (32.2-35.5) g/dl RDW Std Deviation 39.8 (36.4-46.3) fL Plt Count 161 L D (182-369) K/mm3 MPV 11.0 (9.4-12.3) fl Neut % (Auto) 52.0 (34.0-71.1) % Lymph % (Auto) 35.6 (19.3-51.7) % [place] % (Auto) 11.0 (4.7-12.5) % Eos % (Auto) 1.0 (0.7-5.8) Baso % (Auto) 0.2 (0.1-1.2) % Neut # (Auto) 2.65 (1.56-6.13) K/mm3 Lymph # (Auto) 1.81 (1.18-3.74) K/mm3 [place] # (Auto) 0.56 H (0.24-0.36) K/mm3 Eos # (Auto) 0.05 (0.04-0.36) K/mm3 Baso # (Auto) 0.01 (0.01-0.08) K/mm3 PT (9.7-12.0) SECONDS INR Sodium 144 (136-145) mEq/L Potassium 3.5 (3.5-5.1) mEq/L Chloride 110 H (98-107) mEq/L Carbon Dioxide 24 (21-32) mEq/L Anion Gap 13.5 (5-15) BUN 6 L (7-18) mg/dL Creatinine 0.6 (0.55-1.02) mg/dL Est Cr Clr Drug Dosing 99.16 mL/min Estimated GFR (MDRD) > 60 (>60) mL/min BUN/Creatinine Ratio 10.0 L (14-18) Glucose 89 (70-99) mg/dL Calcium 8.0 L (8.5-10.1) mg/dL Total Bilirubin 0.3 0.4 (0.2-1.0) mg/dL Direct Bilirubin 0.10 (0.0-0.2) mg/dl Indirect Bilirubin 0.20 AST 16 13 L (15-37) U/L ALT 19 18 (14-59) U/L Alkaline Phosphatase 41 L 41 L (46-116) U/L Total Protein 6.3 L 5.7 L (6.4-8.2) g/dl Albumin 3.4 3.2 L (3.4-5.0) g/dl Globulin 2.9 2.5 gm/dL Albumin/Globulin Ratio 1.2 1.3 (1-2) Acetaminophen 0 L (10-30) ug/mL Med Orders - Current: Current Medications Enoxaparin Sodium (Enoxaparin 30 Mg/0.3 Ml Syringe) 30 mg SUBCUT Q24H CRISTÓBAL Last Admin: 12/02/20 12:28 Dose: Not Given Documented by: Haloperidol (Haloperidol 5 Mg Tab) 5 mg PO BEDTIME CRISTÓBAL Last Admin: 12/02/20 20:16 Dose: 5 mg Documented by: Discontinued Medications Acetylcysteine (Acetylcysteine 20% 200 Mg/Ml 30 Ml Nebulizer Soln Sdv) 6,159 mg .XX ONETIME ONE Stop: 12/01/20 19:09 Last Admin: 12/01/20 20:08 Dose: Not Given Documented by: Haloperidol Lactate (Haloperidol Lactate 5 Mg/Ml Sdv) 5 mg IM ONETIME STA Stop: 12/02/20 05:07 Last Admin: 12/02/20 05:15 Dose: 5 mg Documented by: Haloperidol Lactate (Haloperidol Lactate 5 Mg/Ml Sdv) Confirm Administered Dose 5 mg .ROUTE .STK-MED ONE Stop: 12/02/20 05:10 Last Admin: 12/02/20 05:32 Dose: Not Given Documented by: Lactated Ringer's (Ringers, Lactated) 1,000 mls @ 999 mls/hr IV .BOLUS ONE Stop: 12/01/20 19:55 Last Admin: 12/02/20 01:05 Dose: Not Given Documented by: Acetylcysteine 6,120 mg/ (Dextrose/Water) 280.6 mls @ 280.6 mls/hr IV ONETIME ONE Stop: 12/01/20 20:44 Last Admin: 12/01/20 20:17 Dose: 280.6 mls/hr Documented by: Acetylcysteine 2,040 mg/ (Dextrose/Water) 510.2 mls @ 127.55 mls/hr IV ONETIME ONE Stop: 12/01/20 23:44 Acetylcysteine 4,080 mg/ (Dextrose/Water) 1,020.4 mls @ 63.775 mls/hr IV ONETIME ONE Stop: 12/02/20 17:44 Acetylcysteine 2,040 mg/ (Dextrose/Water) 510.2 mls @ 127.55 mls/hr IV ONETIME ONE Stop: 12/02/20 00:44 Last Admin: 12/01/20 21:26 Dose: 127.55 mls/hr Documented by: Acetylcysteine 4,080 mg/ (Dextrose/Water) 1,020.4 mls @ 63.775 mls/hr IV ONETIME ONE Stop: 12/02/20 16:44 Last Admin: 12/02/20 01:33 Dose: 63.775 mls/hr Documented by: Sodium Chloride (Normal Saline) 1,000 mls @ 999 mls/hr IV ASDIRECTED CRISTÓBAL Last Admin: 12/01/20 20:17 Dose: 999 mls/hr Documented by: Lorazepam (Lorazepam 2 Mg/Ml Sdv) 1 mg IVPUSH ONETIME ONE Stop: 12/01/20 16:26 Last Admin: 12/01/20 16:37 Dose: 1 mg Documented by: Lorazepam (Lorazepam 2 Mg/Ml Sdv) 1 mg IVPUSH ONETIME ONE Stop: 12/01/20 16:27 Last Admin: 12/01/20 20:08 Dose: Not Given Documented by: Magnesium Oxide (Magnesium Oxide 400 Mg Tab) 800 mg PO ONETIME ONE Stop: 12/01/20 19:26 Last Admin: 12/02/20 01:04 Dose: Not Given Documented by: Potassium Chloride (Potassium Chloride 20 Meq Tab.Er) 40 meq PO ONETIME ONE Stop: 12/01/20 18:46 Last Admin: 12/01/20 20:20 Dose: 40 meq Documented by: Potassium Chloride (Potassium Chloride 10 Meq Tab.Er) 10 meq PO ONETIME ONE Stop: 12/02/20 16:16 Last Admin: 12/02/20 16:15 Dose: 10 meq Documented by: - Exam Quality Assessment: Denies: Supplemental Oxygen General: Reports: Alert, Oriented HEENT: Reports: Pupils Equal, Pupils Reactive, EOMI, Mucous Membr. Moist/[place] Neck: Reports: Supple, Trachea Midline Lungs: Reports: Clear to Auscultation, Normal Respiratory Effort Cardiovascular: Reports: Regular Rate, Regular Rhythm GI/Abdominal Exam: Normal Bowel Sounds, Soft, Non-Tender, No Distention (Female) Exam: Deferred Rectal (Female) Exam: Deferred Back Exam: Reports: Normal Inspection, Full Range of Motion Extremities: Normal Inspection, Normal Range of Motion Skin: Reports: Warm, Dry, Intact Neurological: Reports: No New Focal Deficit Psy/Mental Status: Reports: Alert, Normal Affect, Normal Mood
[2020-12-03] MEDS: Enoxaparin 30 MG/0.3 ML Syringe SUBCUT SCH (08:47)
--- NOTE | 2020-12-06 17:30 | PCM.EKG ---
#1 Interpretation EKG Date: 12/02/20 Time: 12:22 Rhythm: NSR Rate (Beats/Min): 75 [place]: Normal P-Wave: Present QRS: Normal ST-T: Normal QT: Normal Comparison: NA - No Prior EKG EKG Interpretation Comments: Normal sinus rhythm, normal EKG.
== END 2020-12-03 10:05 | disposition home or self-care (01) ==
LOC: JD.ED 16:10 → JD.MS 20:37
PROVIDERS: ADMIT Internal Medicine; ATTEND Internal Medicine
DX: T39.1X1A Poisoning by 4-Aminophenol derivatives, accidental (unintentional), initial encounter (principal); F23 Brief psychotic disorder; F41.9 Anxiety disorder, unspecified; Z20.822 Contact with and (suspected) exposure to COVID-19; Z91.09 Other allergy status, other than to drugs and biological substances
CPT/HCPCS: 36415; 70450; 80053; 80076; 80143; 80179; 80306; 80307; 81001; 83735; 84443; 84703; 85025; 85610; 87635; 93005; 96365; 96366; 96375; 99285; A9270; J0132; J1630; J2060; J7030; J7060; Q3014; 96372; 99217; 99219; 99284; G0378; U0002

== ENCOUNTER 2020-12-03 16:08 | Emergency (ER) | payer MEDICAID ==
--- NOTE | 2020-12-03 16:50 | EDM.PDOC ---
ED HPI GENERAL MEDICAL PROBLEM - General Chief Complaint: Behavioral/Psych Stated Complaint: SIDE EFFECTS OF MEDS/WANTS TO SEE DR NAGEL Time Seen by Provider: 12/03/20 16:45 Source of Information: Reports: Patient, Family (mother) History Limitations: Reports: No Limitations - History of Present Illness INITIAL COMMENTS - FREE TEXT/NARRATIVE: 30-year-old female presents to the ED in the accompaniment of her mother. She was just discharged from the hospital this morning. This was after a 2-day admission for suspect Tylenol overdose. Mild counts patient presented in acute psychotic state. She has no past history of this. There is no suggestion of bipolar affective disorder. Patient had not been sleeping for many days and was felt that she was experiencing a great deal of exhaustion. Patient was treated with Haldol 2 mg by mouth at bedtime for the 2 nights that she was here and she was discharged on this medication as well. She is quite adamant that she does not wish to pursue taking this medication further due to side effects. Currently she is experiencing some excessive burping belching and esophageal pressure perhaps spasm discomfort. Bringing up small quantities of saliva. I believe she is suffering from some degree of aerophagia with air swallowing. Essentially her mother is extremely controlling of this young lady. They believe in homeopathic remedies to treat illnesses. Therefore the had already made a decision that they were not going to take the Haldol any further. They came seeking alternative medicine that may help her sleep intermittently until she can regain her coping skills. At present she is alert oriented and answers all questions appropriately. She is not exhibiting any manic or hypomanic symptoms. She is quite thin and will get indicates that she weighs 102 pounds. She recognizes that Haldol caused her to have a dry mouth but at present has very little other side effects certainly no dyskinesia, akathisia or dystonic reaction. Onset: Today (It is seems that the symptoms have occurred since discharge from hospital today and after speaking at length with her mother at home.) Duration: Hour(s):, Other (Current symptom complex would be considered a nuisance and is not serious in any fashion or form.) Location: Reports: Other (Reports excessive burping belching and bringing up a little bit of saliva. Perhaps some mild esophageal spastic type pain or discomfort.) Severity: Mild Improves with: Reports: Other (Improved with burping and belching.) Worsens with: Reports: None Context: Reports: Other (Recently started on Haldol 2 mg at bedtime for psychotic behavior.). Denies: Activity, Exercise, Lifting, Sick Contact, Trauma Associated Symptoms: Reports: No Other Symptoms, Malaise. Denies: Diaphoresis, Fever/Chills, Headaches, Loss of Appetite, Nausea/Vomiting, Rash, Seizure, Shortness of Breath, Syncope, Weakness - Related Data Allergies Allergy/AdvReac Type Severity Reaction Status Date / Time mold Allergy Chest Verified 12/03/20 16:27 Tightness Home Meds: Home Meds clonazePAM [Clonazepam] 1 mg PO BEDTIME PRN #10 tablet 12/03/20 [Rx] haloperidoL [Haldol] 2 mg PO BEDTIME #30 tab 12/03/20 [Rx] Past Medical History - Past Health History Medical/Surgical History: Denies Medical/Surgical History HEENT History: Reports: None Cardiovascular History: Reports: None Respiratory History: Reports: Bronchitis, Recurrent Gastrointestinal History: Reports: None Genitourinary History: Reports: None Musculoskeletal History: Reports: None Neurological History: Reports: None Psychiatric History: Reports: Anxiety, Psychosis (Presented to the ED a couple of days ago with acute psychosis. No history of similar behaviors. No use of any street drugs. Only history gleaned was that of exhaustion from not sleeping for several days or weeks.) Endocrine/Metabolic History: Reports: None Hematologic History: Reports: None - Infectious Disease History Infectious Disease History: Reports: Chicken Pox - Past Surgical History HEENT Surgical History: Reports: Other (See Below) Other HEENT Surgeries/Procedures: [place] teeth removed Respiratory Surgical History: Reports: None Social & Family History - Family History Family Medical History: No Pertinent Family History - Tobacco Use Tobacco Use Status *Q: Never Tobacco User Second Hand Smoke Exposure: No - Caffeine Use Caffeine Use: Reports: None Other Caffeine Use: Uses herbal teas of a variety on a regular basis - Recreational Drug Use Recreational Drug Use: No - Living Situation & Occupation Living situation: Reports: Occupation: Other ED ROS GENERAL - Review of Systems Review Of Systems: See Below Constitutional: Reports: Malaise, Fatigue, Decreased Appetite, Weight Loss. Denies: Fever, Chills HEENT: Reports: No Symptoms Respiratory: Reports: No Symptoms Cardiovascular: Reports: No Symptoms Endocrine: Reports: Fatigue GI/Abdominal: Reports: Constipation : Reports: No Symptoms (Mild.) Musculoskeletal: Reports: No Symptoms Skin: Reports: No Symptoms Neurological: Reports: Headache. Denies: Confusion, Dizziness, Numbness, Paresthesia, Pre-Existing Deficit, Seizure, Syncope (Mild), Tingling, Tremors, Trouble Speaking, Difficulty Walking, Weakness, Change in Speech, Gait Disturbance Psychiatric: Reports: Other (History of acute psychotic state 2 days ago when admitted to the hospital. Etiology of this was inconclusive. No past history of psychotic behaviors. No history of substance abuse and no past history of a psychiatric history such as bipolar affective disorder or schizophrenia.) Hematologic/Lymphatic: Reports: No Symptoms Immunologic: Reports: No Symptoms ED EXAM, GI/ABD - Physical Exam Exam: See Below Exam Limited By: No Limitations General Appearance: Alert, WD/WN, Anxious, Mild Distress, Other (Of note her mother did a good deal of the talking for her. Temperature is 36.2 with a heart rate of 100. Respiratory of 18 with O2 sats of 96% room air BP was 119/76.) Eyes: Bilateral: Normal Appearance (No blepharal pallor or scleral icterus.) Throat/Mouth: Normal Inspection (Tongue is mildly dry.), Normal Lips, Normal Oropharynx, Other Head: Atraumatic, Normocephalic Neck: Normal Inspection, Supple, Non-Tender, Full Range of Motion. No: Lymphadenopathy (L), Lymphadenopathy (R) Respiratory/Chest: No Respiratory Distress, Lungs Clear, Normal Breath Sounds, No Accessory Muscle Use, Chest Non-Tender Cardiovascular: Normal Peripheral Pulses, Regular Rate, Rhythm, No Edema, No Gallop, No Murmur, No Rub GI/Abdominal Exam: Normal Bowel Sounds, Soft, Non-Tender, No Organomegaly, No Abnormal Bruit, No Mass, Pelvis Stable. No: Abnormal Bowel Sounds Extremities: Normal Inspection, Normal Range of Motion, Non-Tender, No Pedal Edema Neurological: Alert, Oriented, CN II-XII Intact, Normal Cognition, Normal Gait Psychiatric: Normal Affect, Normal Mood Skin Exam: Warm, Dry, Intact, Normal Color, No Rash Course - Vital Signs Last Recorded V/S: Last Vital Signs Temp 36.2 C 12/03/20 16:23 Pulse 100 12/03/20 16:23 Resp 18 12/03/20 16:23 BP 119/76 12/03/20 16:23 Pulse Ox 95 12/03/20 16:23 - Radiology Interpretation Free Text/Narrative:: 30-year-old female presents to the ED in the company of her mother. She was just discharged from hospital this morning after a 2-day stay for suspect Tylenol overdose. She did receive an acetylcysteine antidote over period of 24 hours. She exhibited acute psychotic behavior upon admission to the hospital and was started on Haldol 2 mg once daily at bedtime after consultation with Dr. Warren from the department of psychiatry in [place]. It was his opinion that the patient needs to stay on some form of antipsychotic medication to control her behaviors. At this time she is behaving normally with no signs of hallucinations or manic behavior. It came about that they have made a conscious decision to stop the Haldol at any rate and substitute it with homeopathic medication such as valerian root etc. I think they came essentially to get our blessing to do so. I indicated that we cannot force her to take the medication but it was of sound medical advice that this was the best medication for her at this time. I suggested they try clonazepam 1 mg at bedtime to help sleep since she appears to be suffering from exhaustion which could have precipitated acute psychosis. 10 tablets of 1 mg strength were provided. Follow-up with primary care provider as needed or return to the ED. Departure - Departure Time of Disposition: 16:46 Disposition: Home, Self-Care 01 Condition: Fair Clinical Impression: Exhaustion, Esophageal spasm - Discharge Information *PRESCRIPTION DRUG MONITORING PROGRAM REVIEWED*: Not Applicable *COPY OF PRESCRIPTION DRUG MONITORING REPORT IN PATIENT SARAH: Not Applicable Prescriptions: clonazePAM [Clonazepam] 1 mg PO BEDTIME PRN #10 tablet PRN Reason: Insomnia Referrals: Ale Torrez [facility] [Primary Care Provider] - Forms: ED Department Discharge Additional Instructions: Evaluation in the emergency room this afternoon in regards to recently starting on Haldol 2 mg tablet at bedtime to aid sleep and to improve psychotic thought processes. As you have indicated you feel is causing side effects such as difficulty swallowing with a feeling of need to burp belch to relieve this discomfort. It is important to be aware of not swallowing a lot of air as this will cause you to burp and belch. Should not be drinking any soda pop or aerated/carbonated fluids. As you have decided you wish to try alternative holistic medicine treatments in place of medication that has been advised by Dr. Whitley and Dr. Warren i.e. Haldol 2 mg at bedtime. It is very important that you get a good night sleep as we make the neuro chemicals in her brain to function the next day. With without sleep we will develop anxiety, depression and sometimes acute psychosis. I would suggest trying clonazepam 1 mg at bedtime about a half an hour prior to planned sleep as needed to ensure a good night sleep. Follow-up with primary care physician if any further problems occur. Sepsis Event Note (ED) - Evaluation Sepsis Screening Result: No Definite Risk - Focused Exam Vital Signs: Vital Signs Temp Pulse Resp BP Pulse Ox 12/03/20 16:23 36.2 C 100 18 119/76 95
== END 2020-12-03 17:08 | disposition home or self-care (01) ==
LOC: JD.ED 16:08
DX: K22.4 Dyskinesia of esophagus (principal); R53.83 Other fatigue; Z91.048 Other nonmedicinal substance allergy status
CPT/HCPCS: 99283

== ENCOUNTER 2021-10-02 08:54 | Emergency (ER) | payer BC, MEDICAID ==
[2021-10-02 10:15] LABS: ACETAMINOPHEN 1 ug/mL (10-30)
== END 2021-10-02 16:07 | disposition home or self-care (01) ==
LOC: JD.ED 08:54
DX: F41.9 Anxiety disorder, unspecified (principal); Z91.048 Other nonmedicinal substance allergy status; Z20.822 Contact with and (suspected) exposure to COVID-19
CPT/HCPCS: 36415; 80053; 80143; 80179; 80306; 80307; 84443; 84703; 85025; 99285; U0002

== ENCOUNTER 2021-10-10 05:34 | Emergency (ER) | payer MEDICAID ==
[2021-10-10] MEDS ORDERED: Ondansetron 4 MG Tab.DIS PO ONE (06:24)
[2021-10-10] MEDS ORDERED: LORazepam 1 MG Tab PO ONE (10:53)
== END 2021-10-10 11:05 | disposition home or self-care (01) ==
LOC: JD.ED 05:34
DX: F41.9 Anxiety disorder, unspecified (principal); R11.2 Nausea with vomiting, unspecified; Z91.048 Other nonmedicinal substance allergy status
CPT/HCPCS: 80306; 99284; A9270; 93010; 99283

== ENCOUNTER 2021-10-12 23:47 | Emergency (ER) | payer MEDICAID ==
[2021-10-13] MEDS ORDERED: Famotidine 20 MG Tab PO STA (00:25)
== END 2021-10-13 00:54 | disposition home or self-care (01) ==
LOC: JD.ED 23:47
DX: R11.2 Nausea with vomiting, unspecified (principal); F41.9 Anxiety disorder, unspecified; K21.9 Gastro-esophageal reflux disease without esophagitis; Z91.048 Other nonmedicinal substance allergy status
CPT/HCPCS: 99283; 99284; A9270-GY

== ENCOUNTER 2021-11-02 04:33 | Emergency (ER) | payer MEDICAID ==
[2021-11-02] MEDS ORDERED: OLANZapine 10 MG Vial IM ONE (05:16)
[2021-11-02] MEDS ORDERED: OLANZapine 10 MG Vial ONE (05:17)
[2021-11-02] MEDS ORDERED: Midazolam 1 MG/ML 2 ML SDV ONE (05:18)
[2021-11-02 06:32] LABS: ACETAMINOPHEN 0 ug/mL (10-30)
== END 2021-11-02 13:25 ==
LOC: JD.ED 04:33
DX: F29 Unspecified psychosis not due to a substance or known physiological condition (principal); F41.9 Anxiety disorder, unspecified; Z91.048 Other nonmedicinal substance allergy status; Z20.822 Contact with and (suspected) exposure to COVID-19
CPT/HCPCS: 36415; 80053; 80143; 80179; 80306; 80307; 81025; 84443; 85025; 87635; 93005; 96372; 99285; J2250; J3490; 93010; U0002